=== PATIENT | female | born 1960 | race Caucasian/White ===

== ENCOUNTER 2017-04-13 21:38 | Emergency (ER) | payer MEDICAID ==
[~2017-04-13] VITALS: Ht 152.4 cm; Wt 86.2 kg
[2017-04-13 21:44] VITALS: BP 189/111
[2017-04-13] MEDS ORDERED: AMOXICILLIN/CLAV 875-125MG TABLET PO ONE (22:30)
[2017-04-13] MEDS ORDERED: KETOROLAC 30 MG/1 ML IM ONE (22:30)
[2017-04-13] MEDS ORDERED: OXYcodone/APAP 10/325MG TABLET PO ONE (22:30)
[2017-04-13] MEDS ORDERED: OXYcodone/APAP 10/325MG TABLET ONE (22:35)
[2017-04-13] MEDS ORDERED: KETOROLAC 30 MG/1 ML ONE (22:35)
[2017-04-13] MEDS ORDERED: LISI40TA PO (22:39)
== END 2017-04-13 23:22 | disposition home or self-care (01) ==
LOC: ED 22:25
DX: K04.7 Periapical abscess without sinus (principal); G43.909 Migraine, unspecified, not intractable, without status migrainosus; I10 Essential (primary) hypertension
CPT/HCPCS: 96372; 99283; J1885

== ENCOUNTER 2017-11-14 21:34 | Emergency (ER) | payer MEDICAID ==
[~2017-11-14] VITALS: Ht 154.9 cm; Wt 87.0 kg
[~2017-11-14 21:34] MED LIST: LISI40TA PO
[2017-11-14] MEDS ORDERED: PENICILLIN VK 500MG TABLET ONE (22:14)
[2017-11-14] MEDS ORDERED: HYDROcodone/APAP 5/325 TABLET ONE (22:15)
[2017-11-14 22:22] VITALS: BP 178/86
[2017-11-14] MEDS ORDERED: PENICILLIN VK 500MG TABLET PO SCH (22:30)
[2017-11-14] MEDS ORDERED: HYDROcodone/APAP 5/325 TABLET PO ONE (22:30)
== END 2017-11-14 22:27 | disposition home or self-care (01) ==
LOC: ED 22:15
DX: K08.89 Other specified disorders of teeth and supporting structures (principal); I10 Essential (primary) hypertension
CPT/HCPCS: 93005; 99283

== ENCOUNTER 2018-04-07 22:30 | Emergency (ER) | payer MEDICAID ==
[~2018-04-07] VITALS: Ht 152.4 cm; Wt 86.6 kg
[2018-04-07 22:33] VITALS: BP 176/96
[2018-04-07] MEDS ORDERED: HYDROcodone/APAP 5/325 TABLET PO STA (22:52)
[2018-04-07] MEDS ORDERED: HYDROcodone/APAP 5/325 TABLET ONE (23:50)
== END 2018-04-08 00:44 ==
LOC: ED 23:46
DX: M54.32 Sciatica, left side (principal); I10 Essential (primary) hypertension; G43.909 Migraine, unspecified, not intractable, without status migrainosus
CPT/HCPCS: 72110; 72190; 99284; J7512

== ENCOUNTER 2018-06-12 14:08 | Emergency (ER) | payer MEDICAID ==
[~2018-06-12] VITALS: Ht 152.4 cm; Wt 87.0 kg
[2018-06-12 14:17] VITALS: BP 156/82
[2018-06-12] MEDS ORDERED: HYDROCHLOROTHIAZIDE (14:29)
== END 2018-06-12 15:02 | disposition home or self-care (01) ==
LOC: ED 14:26
DX: K04.7 Periapical abscess without sinus (principal); I10 Essential (primary) hypertension
CPT/HCPCS: 99283

== ENCOUNTER 2018-08-07 20:54 | Inpatient (IN) | payer MEDICAID ==
[~2018-08-07] VITALS: Ht 152.4 cm; Wt 88.5 kg
[~2018-08-07 20:54] MED LIST changes: +HYDROCHLOROTHIAZIDE
[2018-08-07] MEDS ORDERED: ACETAMINOPHEN 500 MG TABLET ONE (21:25)
[2018-08-07] MEDS ORDERED: IBUPROFEN 600 MG TABLET ONE (21:25)
[2018-08-07] MEDS ORDERED: ACETAMINOPHEN 500 MG TABLET PO ONE (21:30)
[2018-08-07] MEDS ORDERED: IBUPROFEN 200 MG TABLET PO ONE (21:30)
[2018-08-07 21:56] LABS: MEAN CORPUSCULAR HEMOGLOBIN 31.2 pg (27.0-34.8); MEAN CORPUSCULAR HGB CONC 34.4 g/dL (32.4-35.8); PLATELET COUNT 207 x10^3/uL (130-400); RED BLOOD COUNT 3.94 x10^6/uL (3.82-5.3); RED CELL DISTRIBUTION WIDTH 13.9 % (9.6-15.2)
[2018-08-07 21:59] LABS: ALBUMIN 3.6 g/dL (3.4-5.0); ANION GAP 8 mmol/L (5-15); CALCIUM 9.1 mg/dL (8.5-10.1); CHLORIDE 111 mmol/L (98-107); CREATININE 0.72 mg/dL (0.55-1.02)
[2018-08-07 22:03] LABS: TROPONIN I 0.071 ng/mL (0.000-0.045)
[2018-08-07 22:20] LABS: BASOPHILS # (AUTO) 0.02 x10^3/uL (0-0.1); BASOPHILS % (AUTO) 0 % (0-1); EOSINOPHILS # (AUTO) 0.23 x10^3/uL (0-0.4); EOSINOPHILS % (AUTO) 3 % (1-7); LYMPHOCYTES # (AUTO) 1.63 x10^3/uL (1-3.4); LYMPHOCYTES % (AUTO) 24 % (22-44); MD SCAN; MONOCYTES # (AUTO) 0.72 x10^3/uL (0.2-0.8); MONOCYTES % (AUTO) 10 % (2-9); NEUTROPHILS % (AUTO) 62 % (42-75)
[2018-08-07] MEDS ORDERED: OMNIPAQUE 350 MG/ML, 100ML BOTTLE ONE (22:30)
[2018-08-07] MEDS ORDERED: ASPIRIN 81 MG TABLET CHEW ONE (23:12)
[2018-08-07] MEDS ORDERED: ACETAMINOPHEN 325 MG TABLET PO PRN (23:30)
[2018-08-07] MEDS ORDERED: BISACODYL 10 MG SUPP PR PRN (23:30)
[2018-08-07] MEDS ORDERED: ONDANSETRON ODT 4 MG PO PRN (23:30)
[2018-08-07] MEDS ORDERED: NITROGLYCERIN 0.4 MG BOTTLE (25 TABS) SL PRN (23:30)
[2018-08-07] MEDS ORDERED: morphine SULFATE 10 MG/ML, 1ML IVPush PRN (23:30)
[2018-08-07] MEDS ORDERED: POLYETHYLENE GLYCOL 17 GM PACKET PO PRN (23:30)
[2018-08-07] MEDS ORDERED: ASPIRIN 81 MG TABLET CHEW PO SCH (23:30)
[2018-08-07 23:47] LABS: FREE T4 (FREE THYROXINE) 0.92 ng/dL (0.76-1.46); THYROID STIMULATING HORMONE 4.07 mIU/L (0.358-3.740)
[2018-08-07 23:48] VITALS: BP 187/75
[2018-08-07] MEDS ORDERED: ASPIRIN 325 MG TABLET PO SCH (23:52)
[2018-08-08] MEDS: HEPARIN 5,000 UNITS/ML, 1ML SQ SCH ×2 (00:54→08:42)
[2018-08-08] MEDS: SODIUM CHLORIDE FLUSH 10ML SYR IVF SCH ×2 (00:57→08:49)
[2018-08-08 02:59] VITALS: BP 169/89
[2018-08-08 03:59] LABS: ALANINE AMINOTRANSFERASE 27 U/L (12-78); ALBUMIN 3.4 g/dL (3.4-5.0); ANION GAP 10 mmol/L (5-15); CALCIUM 8.6 mg/dL (8.5-10.1); CHLORIDE 110 mmol/L (98-107); CHOLESTEROL, TOTAL 148 mg/dL (140-239); CREATININE 0.73 mg/dL (0.55-1.02); TRIGLYCERIDES 146 mg/dL (50-200); VLDL CHOLESTEROL 29 mg/dL (0-25)
[2018-08-08 04:01] LABS: ALKALINE PHOSPHATASE 70 U/L (45-117); BILIRUBIN,TOTAL 0.4 mg/dL (0.2-1.0); HDL CHOLESTEROL (DIRECT) 42 mg/dL (40-60); TOTAL PROTEIN 7.1 g/dL (6.4-8.2)
[2018-08-08 04:04] LABS: CHOL/HDL RATIO 3.5; HDL CHOL % 28 % (28-40); LDL CHOLESTEROL,CALCULATED 77 mg/dL (54-169); LDL/HDL RATIO 1.8 (0.5-3.0)
[2018-08-08] MEDS ORDERED: ASPIRIN 81 MG TABLET EC PO SCH ×2 (06:00→08:00)
[2018-08-08 06:06] LABS: TROPONIN I 0.065 ng/mL (0.000-0.045)
[2018-08-08 06:19] LABS: MEAN CORPUSCULAR HEMOGLOBIN 30.6 pg (27.0-34.8); MEAN CORPUSCULAR HGB CONC 33.5 g/dL (32.4-35.8); MEAN CORPUSCULAR VOLUME 91.3 fL (80-100); MEAN PLATELET VOLUME 11.3 fL (7.4-10.4); PLATELET COUNT 195 x10^3/uL (130-400); RED BLOOD COUNT 3.91 x10^6/uL (3.82-5.3); RED CELL DISTRIBUTION WIDTH 13.8 % (9.6-15.2)
[2018-08-08 06:21] LABS: BASOPHILS # (AUTO) 0.03 x10^3/uL (0-0.1); BASOPHILS % (AUTO) 1 % (0-1); EOSINOPHILS # (AUTO) 0.28 x10^3/uL (0-0.4); EOSINOPHILS % (AUTO) 5 % (1-7); LYMPHOCYTES % (AUTO) 30 % (22-44); MD SCAN; MONOCYTES # (AUTO) 0.74 x10^3/uL (0.2-0.8); MONOCYTES % (AUTO) 12 % (2-9); NEUTROPHILS # (AUTO) 3.24 x10^3/uL (1.8-6.8); NEUTROPHILS % (AUTO) 53 % (42-75)
[2018-08-08 06:24] VITALS: BP 121/72
[2018-08-08] MEDS ORDERED: REGADENOSON 0.4 MG/5 ML SYRINGE ONE (08:52)
[2018-08-08] MEDS ORDERED: LISINOPRIL 20 MG TABLET PO SCH (09:00)
[2018-08-08] MEDS ORDERED: SENNA/DOCUSATE TABLET PO SCH (09:00)
[2018-08-08 12:24] VITALS: BP 139/84
[2018-08-08] MEDS ORDERED: HYDR1TAB12 PO (12:26)
== END 2018-08-08 14:57 | disposition left against medical advice (07) | DRG 600 ==
LOC: ED 21:57 → EDIP 22:54 → 5SO 23:48
PROVIDERS: ADMIT Hospitalist; ATTEND Hospitalist
DX: N63.10 Unspecified lump in the right breast, unspecified quadrant (principal); E87.0 Hyperosmolality and hypernatremia; I24.8 Other forms of acute ischemic heart disease; R07.89 Other chest pain; I10 Essential (primary) hypertension; Z85.3 Personal history of malignant neoplasm of breast; Z53.21 Procedure and treatment not carried out due to patient leaving prior to being seen by health care provider
CPT/HCPCS: 36415; 71275; 78452; 80048; 80053; 80061; 82040; 84439; 84443; 84484; 85025; 85379; 93005; 93017; G0378; J1644; J2785; Q9967; A9502; C9898; J2270

== ENCOUNTER 2018-11-21 19:50 | Emergency (ER) | payer MEDICAID ==
[~2018-11-21] VITALS: Ht 172.7 cm; Wt 87.9 kg
[~2018-11-21 19:50] MED LIST changes: +HYDR1TAB13 PO
[2018-11-21 22:07] LABS: ALANINE AMINOTRANSFERASE 31 U/L (12-78); ALBUMIN 3.5 g/dL (3.4-5.0); ANION GAP 4 mmol/L (5-15); CALCIUM 8.5 mg/dL (8.5-10.1); CHLORIDE 116 mmol/L (98-107)
[2018-11-21 22:09] LABS: ALKALINE PHOSPHATASE 72 U/L (45-117); BILIRUBIN,TOTAL 0.2 mg/dL (0.2-1.0); CREATINE KINASE, TOTAL 229 U/L (26-192); CREATININE 0.82 mg/dL (0.55-1.02); TOTAL PROTEIN 6.6 g/dL (6.4-8.2)
[2018-11-21 22:38] LABS: MD YES; MEAN CORPUSCULAR HEMOGLOBIN 30.9 pg (27.0-34.8); MEAN CORPUSCULAR HGB CONC 34.2 g/dL (32.4-35.8); MEAN CORPUSCULAR VOLUME 90.3 fL (80-100); RED BLOOD COUNT 3.71 x10^6/uL (3.82-5.3); RED CELL DISTRIBUTION WIDTH 13.9 % (9.6-15.2)
[2018-11-21 22:45] LABS: <RBC MORPHOLOGY> NORMAL; EOS#(MANUAL) 0.24 x10^3/uL (0.0-0.4); EOS% (MANUAL) 4 % (1-7); LYMPH#(MANUAL) 1.38 x10^3/uL (1-3.4); LYMPHS% (MANUAL) 23 % (22-44); MONOS#(MANUAL) 0.72 x10^3/uL (0.3-2.7); MONOS% (MANUAL) 12 % (2-9); SEG#(MANUAL) 3.66 x10^3/uL (1.8-6.8); SEGS% (MANUAL) 61 % (42-75)
[2018-11-21 22:48] LABS: PLATELET COUNT 171 x10^3/uL (130-400)
[2018-11-21 22:49] LABS: MEAN PLATELET VOLUME 11.3 fL (7.4-10.4)
[2018-11-21 22:50] LABS: <PLATELET ESTIMATE> ADEQUATE; LARGE PLATELETS 1+
[2018-11-21 22:51] LABS: GIANT PLATELETS 1+
[2018-11-21 23:14] VITALS: BP 141/86
== END 2018-11-21 23:16 | disposition home or self-care (01) ==
LOC: ED 22:28
DX: M79.10 Myalgia, unspecified site (principal); I25.2 Old myocardial infarction; I10 Essential (primary) hypertension; F32.9 Major depressive disorder, single episode, unspecified; F41.9 Anxiety disorder, unspecified
CPT/HCPCS: 36415; 80053; 82550; 85025; 99284

== ENCOUNTER 2019-08-28 23:58 | Emergency (ER) | payer SELFPAY ==
[~2019-08-28] VITALS: Ht 152.4 cm; Wt 91.0 kg
[2019-08-29 00:01] VITALS: BP 183/68
--- NOTE | 2019-08-29 00:30 | NUR ---
ERP IN TO EVAL
[2019-08-29] MEDS ORDERED: ACETAMINOPHEN 500 MG TABLET ONE (00:48)
[2019-08-29] MEDS ORDERED: KETOROLAC 60 MG/2 ML ONE (00:48)
[2019-08-29] MEDS ORDERED: METHOCARBAMOL 750 MG TABLET ONE (00:48)
--- NOTE | 2019-08-29 00:55 | NUR ---
PT MEDICATED PER OCT. TO BE D\/C.
[2019-08-29] MEDS ORDERED: KETOROLAC 60 MG/2 ML IM ONE (01:00)
[2019-08-29] MEDS ORDERED: ACETAMINOPHEN 500 MG TABLET PO ONE (01:00)
[2019-08-29] MEDS ORDERED: METHOCARBAMOL 750 MG TABLET PO ONE (01:00)
== END 2019-08-29 01:30 | disposition home or self-care (01) ==
LOC: ED 23:59
DX: G43.909 Migraine, unspecified, not intractable, without status migrainosus (principal); F32.9 Major depressive disorder, single episode, unspecified; R11.0 Nausea; I10 Essential (primary) hypertension; I25.2 Old myocardial infarction; G89.29 Other chronic pain
CPT/HCPCS: 93005; 96372; 99283; J1885